=== PATIENT | female | born 1945 | race Caucasian/White ===

== ENCOUNTER 2019-11-29 21:20 | Emergency (ER) | payer MEDICARE, OTHER ==
[~2019-11-29] VITALS: Ht 162.6 cm; Wt 54.5 kg
[~2019-11-29 21:20] MED LIST: DOC-Q-LACE100 MG PO; FIBERCON PO; LORTAB 5/500 501 TAB PO; MOTRIN600 MG PO; MULTI VITAMINS1 TAB PO; NORCO 325 MG-51 TAB PO; OMEPRAZOLE PO
[2019-11-29 21:45] VITALS: TEMP 97.6
[2019-11-30 00:24] LABS: BASO # 0.1 (0.0-0.2); BASO % 1.1 % (0.0-2.0); EOS # 0.2 (0.0-0.7); EOS % 4.2 % (0-4.0); GRAN # 3.1 (1.4-6.5); GRAN % 57.7 % (42.2-75.2); HEMOGLOBIN 11.8 g/dl (12.5-16.0); LYMPH # 1.5 (1.2-3.4); LYMPH % 27.4 % (20.0-51.0); MEAN CELL VOLUME 91 fl (80.0-100.0); MEAN CORPUSCULAR HEMOGLOBIN 30 pg (27.0-31.0); MEAN CORPUSCULAR HGB CONC 33 g/dl (33.0-37.0); MEAN PLATELET VOLUME 11.2 fl (7.4-10.4); MONO # 0.5 (0.1-0.6); MONO % 9.4 % (1.7-9.3); PLATELET COUNT 176 K/mm3 (130-400); RED BLOOD COUNT 3.95 M/mm3 (4.10-5.30); REDCELL DISTRIBUTION WIDTH-CV 12.8 % (11.5-14.5)
[2019-11-30 00:25] LABS: HEMATOCRIT 36.1 % (37.0-47.0)
[2019-11-30 00:31] LABS: D-DIMER < 200.00 ng/mLDDu (200-230)
[2019-11-30] MEDS ORDERED: BACTRIM DS 8001 TAB PO ×2 (00:50→10:38)
[2019-11-30 01:07] VITALS: BP 138/63; PULSE 73
== END 2019-11-30 01:07 | disposition home or self-care (01) ==
LOC: COL.ER 21:20
PROVIDERS: Nurse Practitioner
DX: S80.862A Insect bite (nonvenomous), left lower leg, initial encounter (principal); Z87.891 Personal history of nicotine dependence; Z88.6 Allergy status to analgesic agent; Z88.8 Allergy status to other drugs, medicaments and biological substances

== ENCOUNTER 2020-05-05 13:11 | Inpatient (IN) | payer MEDICARE, OTHER ==
[~2020-05-05] VITALS: Ht 162.6 cm; Wt 56.8 kg
[~2020-05-05 13:11] MED LIST changes: +ANTIBIOTIC; +BACTRIM DS 8001 TAB PO; +CENTRUM SILVER CHEW; +FIBER GUMMIES2.5 GM PO; +LIDO35.4; +ULTRAM 50MG TAB50 MG PO
[2020-05-05 18:00] VITALS: BP 149/70; PULSE 99; TEMP 98.7
--- NOTE | 2020-05-05 20:22 | NUR ---
Recieved report from BE De Anda at [facility] at 3:00 PM today. 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 She wears bilateral hearing aids and is very [place] of B/B, Takes pills whole with water, She has dentures upper and lower, she has a hearing aid core worker, she has 2 pairs of shoes with her, she also brought clothes and PJ's x2. She is a Full Code, her last BM was yesterday. Last VS prior to leaving for IPR was the followin/66, T 36.7, R 20, 02 93% RA. She has a double lumen PICC to her right upper arm and receives continues antibiotic for her Bacterial Menengitis. Patient is currently resting in bed, call light in reach and bed alarm set. Reported off to night nurse.
--- NOTE | 2020-05-06 04:26 | NUR ---
PT SLEEPING SOUNDLY AFTER NORCO GIVEN FOPR PAIN. NO RESP DISTRESS.
[2020-05-06 05:32] VITALS: BP 122/51; PULSE 83; TEMP 98.4
--- NOTE | 2020-05-06 08:45 | NUR ---
PT DENIED PAIN THIS AM. ASSISTED WITH DENTURE CARE THIS AM AND TO RESTROOM.
[2020-05-06 16:30] VITALS: BP 147/71; PULSE 100; TEMP 98.3
--- NOTE | 2020-05-06 16:32 | NUR ---
Plug Assembler met with patient to complete intake as she is new to [facility]. Patient lives in [place] with her adult son, Jluis. 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 Patient sees Dr. Abdias Flanagan for primary care and [facility] with [facility] difficulties. Patient normally does not use any DME and is normally independent with ADLS. Patient is determined to discharge from [facility] without needing any DME. Patient does not have Advance Directives and is not interested in completing DPOA-HC at this time. SW explained that a DPOA-HC would be designating someone to make medical decisions for her if she is unable to. Patient states "talk to me about it in 10 years". Patient has five children: Cely Bazzi (ph#[phone]), Cadence Harrington, and Sommer. Patient reports Jluis and Cely are her adopted children and were biologically her grandchildren before she adopted them. SW will continue to follow for discharge needs.
--- NOTE | 2020-05-06 19:48 | NUR ---
PT RECEIEVED NORCO ONCE THIS SHIFT FOR BAKC AND NECK PAIN AND APAP ONCE FOR HEADACHE. PT USING TOILET FOR BM VERY FREQUENTLY THIS EVENING EVERY 15 MINUTES FOR LAST HOUR TO HOUR AND HALF. STOOLS ARE SEMI-FORMED AND VERY SMALL. PT REPORTS BEING BACKED UP FOR 2 WEEKS.
[2020-05-07 04:39] VITALS: BP 131/55; PULSE 87; TEMP 98.6
--- NOTE | 2020-05-07 08:00 | NUR ---
PT UP TO BR MULTIPLE TIMES FOR VERY SMALL BM'S AND URINATING FREQUENCY. NEW BAG OF NAFACILLIN AND NEW TUBING HUNG LAST EVENING. NORCO 7.5 GIVEN X 2 THIS SHIFT WITH THE LAST ONE JUST PRIOR TO SHIFT CHANGE. PICC FLUSHES WITH NO PROBLEM. SLEEPS OFF AND ON. BED ALARM ON AND CALL LIGHT IN REACH. AMBULATES IN BEAVER AROUND TO NURSES DESK AND THEN BACK TO ROOM AND REMAINS UP IN CHAIR.
[2020-05-07 15:12] VITALS: BP 152/60; PULSE 100; TEMP 98.4
--- NOTE | 2020-05-08 05:22 | NUR ---
PT IN BED. COREY FOR NECK/HEAD PAIN. NO N/V. PT HAD NO PROBLEMS WITH FREQUENT STOOLS ON PENETRATION TESTER.
[2020-05-08 05:47] VITALS: BP 131/57; PULSE 90; TEMP 97.8
--- NOTE | 2020-05-08 08:41 | NUR ---
Patient resting in recliner, call light in reach and chair alarm set. Assisted patient with meals for today. Will continue to monitor.
--- NOTE | 2020-05-08 11:56 | NUR ---
Patient continues to have frequent transfers to the toilet due to incontinent stools. Stools are soft and formed. Patient was seen by Dr. Doshi, see new orders for stool culture and imodium prn. This nurse assisted patient with calling in her changes to her menu for lunch and dinner this morning. Patient continues on continuous antibiotic and tolerating at this time. Will continue to monitor.
[2020-05-08 15:01] VITALS: BP 148/71; PULSE 96; TEMP 98.4
--- NOTE | 2020-05-08 16:51 | NUR ---
Patient's daughter stopped by to visit and helped her mother with her menu for tomorrow. Menu was faxed to the kitchen. Patient currently resting in bed, call light in reach and bed alarm set. Will continue to monitor.
--- NOTE | 2020-05-08 19:15 | NUR ---
RECEIVED CHANGE OF SHIFT REPORT FROM DAY SHIFT NURSE. BED ALARM ON.
--- NOTE | 2020-05-08 19:48 | NUR ---
PATIENT REQUESTED PAIN MED FOR COMPLAINT OF BACK AND NECK PAIN AND HAD ALSO COMPLAINED OF NOT GETTING ENOUGH SLEEP. PATIENT SLEEPING IN BED WHEN STAFF ENTERED ROOM TO ADMINISTER REQUESTED PAIN MED, PATIENT NOT WAKENED FOR PAIN MED AT THIS TIME.
--- NOTE | 2020-05-08 20:41 | NUR ---
CONTINUED L HAND PARTIALLY CONTRACTED WITH WEAK ADVERTISING INTERN COMPARED TO R HAND. DENIES CHEST PAIN/SOA/NAUSEA AT THIS TIME.
--- NOTE | 2020-05-09 03:31 | NUR ---
ATTEMPTED TO COLLECT STOOL SPECIMEN, WITH SPECIMEN CONTANIMATED WITH URINE, UNABLE TO COLLECT.
[2020-05-09 05:47] VITALS: BP 150/69; PULSE 63; TEMP 98.6
[2020-05-09 06:03] LABS: BASO # 0.1 (0.0-0.2); BASO % 1.6 % (0.0-2.0); EOS # 0.3 (0.0-0.7); EOS % 4.6 % (0-4.0); GRAN % 65.8 % (42.2-75.2); LYMPH # 1.2 (1.2-3.4); LYMPH % 19.2 % (20.0-51.0); MEAN CELL VOLUME 95 fl (80.0-100.0); MEAN CORPUSCULAR HGB CONC 30 g/dl (33.0-37.0); MEAN PLATELET VOLUME 9.1 fl (7.4-10.4); MONO # 0.5 (0.1-0.6); MONO % 8.5 % (1.7-9.3); PLATELET COUNT 478 K/mm3 (130-400); RED BLOOD COUNT 2.93 M/mm3 (4.10-5.30); REDCELL DISTRIBUTION WIDTH-CV 15.4 % (11.5-14.5)
[2020-05-09 06:11] LABS: HEMATOCRIT 27.8 % (37.0-47.0); HEMOGLOBIN 8.4 g/dl (12.5-16.0); MEAN CORPUSCULAR HEMOGLOBIN 29 pg (27.0-31.0)
[2020-05-09 06:20] LABS: ALBUMIN 3.1 gm/dL (3.5-5.0); BILIRUBIN,TOTAL 0.8 mg/dL (0.0-1.0); CALCIUM 8.4 mg/dL (8.4-10.2); CREATININE, serum 0.55 (0.52-1.25); TOTAL PROTEIN 6.4 gm/dL (6.4-8.2)
--- NOTE | 2020-05-09 07:04 | NUR ---
CHANGE OF SHIFT REPORT GIVEN TO DAY SHIFT NURSE, CARLY LR.
--- NOTE | 2020-05-09 07:04 | NUR ---
PT RESTING IN RECLINER AT BEDSIDE SHIFT REPORT. UP TO BATHROOM AND HAS BRUSHED TEETH THIS AM.
[2020-05-09 07:08] LABS: ERYTHROCYTE SEDIMENTATION RATE > 140 mm/hr (0-30)
--- NOTE | 2020-05-09 11:33 | NUR ---
SW met with the patient to introduce oneself and to follow up after the weekend. The patient states that she is doing okay and the weekend went okay. The patient then became tearful and appeared upset. She states that she was told she can fight her stay here. She reports that if she needs IV antibiotics or her PICC changed that she has no one at home that can do that. SW informed her of the option of doing this at an outpatient clinic, such at [facility], if she has transportation. The patient states that she does not know what is social work is talking about that she would not be able to do that. SW provided support. SW to follow up with clinical team about antibiotic recs.
--- NOTE | 2020-05-09 13:39 | NUR ---
Admission QIM scores were reviewed by the team. Code of 6 chosen for eating was determined by team discussion to be the most usual performance for this patient during the assessment period. Code of 3 chosen for toilet hygiene was determined by team discussion to be the most usual performance for this patient during the assessment period. Code of 3 chosen for toileting transfers was determined by team discussion to be the most usual performance for this patient during the assessment period. Code of 3 chosen for lower body dressing was determined by team discussion to be the most usual performance for this patient during the assessment period. Code of 1 chosen for putting on/taking off footwear was determined by team discussion to be the most usual performance for this patient during the assessment period. Code of 3 for sit to stand was determined by team discussion to be the most usual performance for this patient during the assessment period. Code of 3 for chair/bed to chair transfers was determined by team discussion to be the most usual performance for this patient during the assessment period.--Mia Avila,
[2020-05-09 15:27] VITALS: BP 133/57; PULSE 95; TEMP 98.4
--- NOTE | 2020-05-09 17:36 | NUR ---
PT RECEIEVED PRN APAP FOR HEADACHE THIS AM. VITALS CHECKED PRIOR AND WNL. PT HAS DENIED MUCH NECK OR BACK PAIN. IV STOPPED FOR 30-40 MINUTES FOR SHOWER AND RECONNECTED FOR CONTINUOUS INFUSION OF ABX. PT HAVING FEWER BM'S TODAY.
--- NOTE | 2020-05-09 19:12 | NUR ---
RECEIVED CHANGE OF SHIFT REPORT FROM DAY SHIFT NURSE.
--- NOTE | 2020-05-09 20:00 | NUR ---
DENIES CHEST PAIN/SOA/NAUSEA AT THIS TIME. REPORTS SHE IS MORE COMFORTABLE IN BED SINCE AIR MATTRESS OVERLAY PLACED ON BED. BED ALARM ON WHEN BED.
[2020-05-10 04:38] VITALS: BP 132/59; PULSE 78; TEMP 98
--- NOTE | 2020-05-10 06:58 | NUR ---
PT ASSISTED TO BATHROOM THIS AM AT BEDSIDE SHIFT REPORT. TEETH BRUSHED AND HEARING AIDS PLACED. PT AMBULATED TO RECLINER AND ALARM SET.
--- NOTE | 2020-05-10 07:04 | NUR ---
CHANGE OF SHIFT REPORT GIVEN TO DAY SHIFT NURSE, CARLY LR.
--- NOTE | 2020-05-10 10:02 | NUR ---
Initial visit; Patient thanked [employer] for looking in on her and offering God's blessings.
--- NOTE | 2020-05-10 11:45 | NUR ---
Patient admitted to [facility] with PICC. AIV not notified. PICC dressing dated 04/25/2020. Sterile PICC dressing change done with insertion site cleansed with chloraprep x 1, chlorhexidine impregnated disk applied, skin prep, stat lock, and tegaderm applied. no signs or symptoms of IV complications noted. no concerns voiced.
--- NOTE | 2020-05-10 17:37 | NUR ---
PT RECEIEVED PRN APAP DURING THIS SHIFT FOR BACK PAIN. UTILIZES KPAD TO LOWER BACK. UP TO THE BATHROOM FREUENLTY. SMALL FORMED STOOLS AND FREQUENT URINATION.
[2020-05-10 17:43] VITALS: BP 137/97; PULSE 106; TEMP 98.4
[2020-05-10 18:10] VITALS: BP 126/50; PULSE 65; TEMP 98.9
--- NOTE | 2020-05-10 19:30 | NUR ---
RECEIVED CHANGE OF SHIFT REPORT FROM DAY SHIFT NURSE. BED ALARM ON WHILE IN BED.
--- NOTE | 2020-05-10 19:30 | NUR ---
DENIES CHEST PAIN/SOA/NAUSEA AT THIS TIME. PICC LINE IN PLACE. BED ALARM ON WHEN IN BED. PATIENT REPORTS SHE DOESNOT WANT TO TAKE NARCOTICS FOR PAIN AND IS OK WITH TAKING TYLENOL WHEN NEEDED.
[2020-05-11 05:21] VITALS: BP 136/71; PULSE 75; TEMP 97.5
--- NOTE | 2020-05-11 07:17 | NUR ---
CHANGE OF SHIFT REPORT GIVEN TO DAY SHIFT NURSE, ROSELINE LR.
--- NOTE | 2020-05-11 14:02 | NUR ---
Patient working with therapy at this time. Patient tolerated breakfast and lunch today reporting no nausea at this time. She took some prn tylenol for pain management of back pain. Will continue to monitor.
--- NOTE | 2020-05-11 14:55 | NUR ---
Patient attended all therapies this shift. She is currently resting in recliner, call light in reach and alarm set. Patient is on continuous IV antibiotics and tolerating well at this time. Patient will be discharging on Saturday of next week with HH PT/OT. Will continue to monitor.
--- NOTE | 2020-05-11 14:58 | NUR ---
SANA contacted the patient's daughter, Cely, to review the IPR Team Conference note. The team has set a tentative d/c date for next Saturday, 05/17, with home health PT/OT. The patient is also going to need to continue her IV antibiotics until June 04. SANA informed of Cely of his and informed her of the different options to receive the IV antibiotics. Cely reports that she works at [facility] and would be able to bring the patient there to get the IV antibiotic and then bring her back home. SANA discussed getting a patient/family meeting set up. A patient/family meeting was set up on Saturday, 05/13, at 1300. SANA updated IPR Director. SANA then met with the patient to review the above information and presented the IPR Team Conference Note. The patient is agreeable to the plan. SANA provided her with Medicare.gov's list of home health agencies that serve [place]. The patient chose [facility]. SANA contacted and faxed a referral to Kaye at [facility]. Awaiting screen.
[2020-05-11 16:05] VITALS: BP 140/68; PULSE 104; TEMP 97.4
--- NOTE | 2020-05-11 18:56 | NUR ---
RECEIVED CHANGE OF SHIFT REPORT FROM DAY SHIFT NURSE.
--- NOTE | 2020-05-11 19:58 | NUR ---
CIHDI HAND ASSET RECOVERY SPECIALIST WEAK WITH LEFT WORSE THAN RIGHT D/T LEFT HAND PARTIAL CONTRACTED POSITION. BED ALARM ON WHEN IN BED. SEE eMAR FOR MED GIVEN FOR LOOSE STOOL.
[2020-05-12 05:46] VITALS: BP 128/57; PULSE 83; TEMP 97.8
--- NOTE | 2020-05-12 07:12 | NUR ---
CHANGE OF SHIFT REPORT GIVEN TO DAY SHIFT NURSE, ROSELINE LR.
--- NOTE | 2020-05-12 08:49 | NUR ---
Patient working with therapy at this time. Patient reported having some nausea this morning when eating breakfast, but that has subsided at this time. Patient takes pills whole with water a few at a time.
--- NOTE | 2020-05-12 08:51 | NUR ---
Patient currently working with therapy at this time. She had one soft formed stool this morning. She reported pain to her lower back and was given prn tylenol prior to her therapies. Patient is observation only when ambulating to the bathroom using her walker, gaitbelt and staff following behind with pulling along the IV pole. Patient in a pleasent mood this morning. Patient was given imodium this morning due to multiple stools. Will continue to monitor.
--- NOTE | 2020-05-12 13:43 | NUR ---
Kaye, at [facility], reports that they are maxed out on clients with Medicare advantage plans and will have to deline the patient at this time. SW to update the patient.
--- NOTE | 2020-05-12 14:33 | NUR ---
SANA met with the patient to update on [facility] and obtain second preference. The patient was interested in [facility]. SANA contacted and faxed a referral to Ritu at [facility]. Ritu reports that they do take Medicare [employer]. Awaiting screen.
--- NOTE | 2020-05-12 15:16 | NUR ---
Kaye, at [facility], contacted SANA back and reports that they actually can take the patient for services. SANA met with the patient to update. The patient would like to go ahead and use [facility]. SANA notified Ritu at [facility].
--- NOTE | 2020-05-12 15:21 | NUR ---
SANA contacted the supervisor bottle house cleaners at [facility] to set up the IV antibiotics. The supervisor bottle house cleaners reports that their IV therapy division officer weapons department is gone and will be back Saturday. She states that SANA can follow up then to set up the antibiotics.
[2020-05-12 18:46] VITALS: BP 150/65; PULSE 113; TEMP 97.7
--- NOTE | 2020-05-12 20:10 | NUR ---
Patient continues to have multiple soft stools, but has taken imodium of which has helped. Patient attended all therapies. Pain has been controlled with Tylenol and heating pad. Labs from Saturday were faxed to Dr. Carrillo's office per orders. Awaiting a return call from their office for any new orders. Reported off to night nurse requesting that the nurse tomorrow follow up with Dr. Carrillo's office. Patient currently resting in bed, call light in reach and bed alarm set.
--- NOTE | 2020-05-12 21:00 | NUR ---
PT RESTING IN BED. HAD JUST RETURNED FROM BR WITH WALKER AND PROCESS ENGINEER. PT DENIES PAIN AT THIS TIME. READY FOR MELATONIN. NAAFCILLIN INFUSING AT 20.8CC/HR TO RT UPPER ARM PICC LINE. PURPLE LUMEN. RED LUMEN FLUSHES WELL. CALL LIGHT IN REACH. BED ALARM SET.
[2020-05-12 21:57] VITALS: PULSE 87
[2020-05-13 04:24] VITALS: BP 130/56; PULSE 81; TEMP 98
--- NOTE | 2020-05-13 08:56 | NUR ---
PT UP IN RECLINER AT SHIFT REPORT. TO BATHROOM THIS AM, REQUESTING IMODIUM. DENIES PAIN AT THIS TIME.
--- NOTE | 2020-05-13 11:03 | NUR ---
Follow-up; Patient out of room, Boat Mechanic left Prayer card with God's blessings.
--- NOTE | 2020-05-13 13:24 | NUR ---
SW attended a patient/family meeting. The patient's daughter, Praveen, was present. Also present was ST, PT, and OT. ST started by explaining the purpose of the meeting. ST/PT/OT then discussed the patient's progress so far and how a tentative d/c date has been set for next Saturday with home health PT/OT. The patient and her daughter were agreeable to the plan. At this time, the patient's IV antibiotics run time is continuous throughout the day. The patient and her daughter's biggest concern is the IV antibiotic and how often she will need it. The clinical team is working on getting recommendations for the IV antibiotics. The patient reports that she will need a FWW for at home and would like to ahead and get it from [facility]. The team answered all questions. SW to continue to follow.
[2020-05-13 17:20] VITALS: BP 134/63; PULSE 103; TEMP 98.3
--- NOTE | 2020-05-13 19:52 | NUR ---
PT MADE MOD-I IN ROOM WITH JUST IV POLE. PT DOING WELL WITH THIS. C/O LOWER BACK AND SACRAL PAIN AT SEPERATE TIMES TODAY. GIVEN PRN APAP EACH TIME. PT FRUSTRATED THIS EVENING AND IN TEARS, UNABLE TO GET LEGS UP ON RECLINER. STATED SHE WAS JUST TIRED AND FRUSTRATED.
--- NOTE | 2020-05-13 20:00 | NUR ---
PT SLEEPING. NO DISTRESS. NAFCILLIN INFUSING TO RUE PICC PURPLE LUMEN AT 20.8CC/HR. MOD I IN ROOM.
[2020-05-14 05:47] VITALS: BP 133/56; PULSE 78; TEMP 98.4
[2020-05-14 16:48] VITALS: BP 120/84; PULSE 99; TEMP 98.1
--- NOTE | 2020-05-14 18:56 | NUR ---
PATIENT INDEPENDENT IN THE ROOM DURING SHIFT. PATIENT AMBULATED IN HALLWAYS WITH STAFF MULTIPLE TIMES THROUGHOUT THE DAY. PATIENT REPORTING A HEADACHE THIS EVENING AND WAS GIVEN PRN TYLENOL WITH EVENING MEDS. REPORT GIVEN TO BE JAVIER.
--- NOTE | 2020-05-14 21:01 | NUR ---
PT RESTING IN BED. DENIES PAIN AT THIS TIME. NAFACILLIN INFUSING TO RUE PICC AT 20.8CC/HR. MOD I IN ROOM. TOLERATING WELL. CALL LIGHT IN REACH.
[2020-05-15 05:32] VITALS: BP 128/52; PULSE 73; TEMP 98.1
[2020-05-15 15:45] VITALS: BP 144/67; PULSE 93; TEMP 98.5
--- NOTE | 2020-05-15 18:59 | NUR ---
PATIENT GIVEN PRM IMMODIUM ONCE DURING SHIFT FOR FREQUENT STOOLS. PATIENT GIVEN PRN TYLENOL FOR NECK PAIN. PATIENT AMBULATED IN HALLWAYS MULTIPLE TIMES WITH STAFF DURING THE DAY, OTHERWISE RENO IN THE ROOM WITH THE IV POLE. PATIENT RESTING IN CHAIR AT THIS TIME. REPORT GIVEN TO BE JAVIER.
--- NOTE | 2020-05-15 20:00 | NUR ---
PT MOD I IN ROOM. REMINDED OF SAFETY. PT REFUSES WALKER. ABLE TO MANAGE SELF CARES INDEPENDENTLY.
[2020-05-16 01:32] VITALS: BP 135/62; PULSE 91
[2020-05-16 05:27] VITALS: BP 133/55; PULSE 73; TEMP 98
[2020-05-16 06:27] LABS: BASO # 0.1 (0.0-0.2); BASO % 2.1 % (0.0-2.0); EOS # 0.3 (0.0-0.7); EOS % 5.9 % (0-4.0); GRAN # 2.5 (1.4-6.5); LYMPH # 1.3 (1.2-3.4); LYMPH % 27.6 % (20.0-51.0); MEAN CELL VOLUME 97 fl (80.0-100.0); MEAN CORPUSCULAR HGB CONC 30 g/dl (33.0-37.0); MEAN PLATELET VOLUME 9.2 fl (7.4-10.4); MONO # 0.5 (0.1-0.6); MONO % 11.2 % (1.7-9.3); PLATELET COUNT 261 K/mm3 (130-400); RED BLOOD COUNT 2.85 M/mm3 (4.10-5.30); REDCELL DISTRIBUTION WIDTH-CV 16.5 % (11.5-14.5)
[2020-05-16 06:28] LABS: HEMATOCRIT 27.5 % (37.0-47.0); HEMOGLOBIN 8.3 g/dl (12.5-16.0); MEAN CORPUSCULAR HEMOGLOBIN 29 pg (27.0-31.0)
[2020-05-16 06:43] LABS: ALBUMIN 3.1 gm/dL (3.5-5.0); BILIRUBIN,TOTAL 0.9 mg/dL (0.0-1.0); C-REACTIVE PROTEIN 5.4 mg/dL (0.0-0.9); CALCIUM 8.3 mg/dL (8.4-10.2); CREATININE, serum 0.56 (0.52-1.25); POTASSIUM 3.9 mmol/L (3.4-5.0); TOTAL PROTEIN 6.7 gm/dL (6.4-8.2)
[2020-05-16 07:42] LABS: ERYTHROCYTE SEDIMENTATION RATE 106 mm/hr (0-30)
--- NOTE | 2020-05-16 09:23 | NUR ---
PT UP AND IN RECLINER AT SHIFT REPORT. PT REPORTS PAIN IS MINIMAL THIS AM, DOIG WELL WITH MOD-I STATUS IN ROOM. CALL OUT TO ID IN [place] TO CHECK ON SWITCHING TO PO ABX PRIOR TO DISCHARGE.
--- NOTE | 2020-05-16 09:38 | NUR ---
SW contacted and faxed the patient's FWW order to [facility].
--- NOTE | 2020-05-16 13:03 | NUR ---
Barbara, at [facility], contacted SANA. Barbara requested the patient's records. She will need an order for the IV antibiotic, once recommedations are in. SANA faxed the patient's records to Barbara. Awaiting ID recs for IV antibiotics. Barbara ph#[phone], fax#[phone]
[2020-05-16] MEDS ORDERED: CUBICIN 500MG500 MG IV (15:34)
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
[2020-05-16 16:14] VITALS: BP 128/58; PULSE 101; TEMP 98.4
--- NOTE | 2020-05-16 16:31 | NUR ---
The hospitalist notified SANA that ID is recommending either IV Ancef 3 times a day or IV Dapto once a day. SANA notified Barbara at [facility]. Barbara reports that they would be able to and prefer the IV Dapto. Barbara states that since the patient has a Medicare advantage plan, that they would need to get auth first. Barbara states that the records SW send earlier were difficult to read and gave SW another fax number to fax them to. [phone]. SANA re-faxed the patient's records and the script for the IV Dapto to Barbara at that number. SANA met with the patient to update. The patient is ready to get home and states that she does not need a FWW now. SW to staff with PT about this. SANA presented and read the IM form outloud to the patient. The patient verbalized understanding and gave SW approval to sign the form on her behalf. SANA provided her with a copy. SANA then contacted and updated the patient's daughter, Cely, on the above information. SANA then received a phone call from Barbara at [facility]. Barbara reports that they have everything taken care of now and are able to accept the patient for the IV antibiotics. The patient's appointment time will be at 1200 on Saturday. Barbara does request the notes from our PICC Line nurse. SANA to staff with our PICC line nurse, Dona. SANA updated the patient's RN. SANA contacted the patient's daughter, Cely, and updated her. Cely was agreeable to the appointment time. Cely reports that she will knot picker cloth the patient around [phone] tomorrow. SANA informed the patient's RN of this.
--- NOTE | 2020-05-16 16:55 | NUR ---
PT TO RECEIEVE FIRST DOSE OF IV CUBICIN 05/17 PRIOR TO DISCHARGE. WILL STOP NAFACILLIN, FLUSH, AND THEN ADMINISTER CUBICIN. PHARMACY WILL HAVE IT READY BY NOON TOMORROW. PT WILL RECEIVE SECOND AND CONSECUTIVE DOSES AT [facility] STARTING 05/18 AT 1200.
[2020-05-16] MEDS ORDERED: IMODIUM 2MG CAPS2 MG PO (17:03)
[2020-05-16] MEDS ORDERED: TYLENOL 325MG325 MG PO (17:03)
[2020-05-16] MEDS ORDERED: ZINC OXIDE56.7 GM TOP (17:04)
[2020-05-16] MEDS ORDERED: MELATIN 3 MG-11 TAB PO (17:04)
[2020-05-17 04:10] VITALS: BP 130/61; PULSE 69; TEMP 98
--- NOTE | 2020-05-17 04:33 | NUR ---
Patient did well throughout the night. No complaints of pain. Patient ambulating independently in room. Antibiotics infusing to PICC in right upper arm.
[2020-05-17] MEDS ORDERED: ATIVAN 1MG T1 MG/TAB PO (08:06)
--- NOTE | 2020-05-17 08:16 | NUR ---
Patient resting in bed, call light in reach and independent in room when walking with IV pole. Patient's MRI was cancelled for this morning and will be rescheduled for one month from now. Patient's daughter will be picking up patient after her last dose of antibiotic was given at noon.
--- NOTE | 2020-05-17 10:07 | NUR ---
SW staffed with PT about the FWW. PT would recommend a FWW for the patient. SW met with the patient to discuss the FWW. The patient was agreeable with getting the FWW. SANA followed up with Claudine at [facility]. Claudine reports that their trailer driver is on their way now up to the hospital to deliver the FWW. The patient reports that her daughter has a doctor's appointment tomorrow and will not be able to bring her to her IV antibiotic appointment. SANA contacted the patient's daughter, Cely, to address this. Cely reports that she does have an appointment in [place] tomorrow and would not be able to bring the patient to her appointment tomorrow. Cely reports that the patient was asking a friend if they could bring her. If not, Cely was going to ask her boss to transport the patient tomorrow. SW updated the patient. The patient and her daughter had no other questions at this time. The patient is to discharge back home with her son today, 05/17, with home health services for shelter/PT/OT from [facility] and IV antibiotics at [facility]. SANA notified and faxed d/c orders to Kaye at [facility] and Barbara at [facility]. The patient's RN faxed our PICC Line RN's information to Barbara at [facility]. No additional needs at this time.
--- NOTE | 2020-05-17 14:28 | NUR ---
This nurse called and spoke with Dr. Flanagan's nurse Francine and she will be having Sarina lining caser follow up with patient tomorrow. Patient will be getting her labs drawn at [facility] outpatient.
--- NOTE | 2020-05-17 17:59 | NUR ---
Patient Health Summary, Discharge Summary, and Home meds printed and reviewed with patient and daughter. Stressed importance of follow up appointments. Provided prescriptions for Daily antibiotic, Cubicin Inj. and weekly labs (CBC w/diff, CMP, CK, ESR, CRP). Belongings gathered by [employer] incuding phone, spine specialist, other misc. items and air mattress. Patient transported via wheelchair by [employer] and seatbelted for ride home with daughter. Patient and daughter denied questions.
--- NOTE | 2020-05-26 09:25 | NUR ---
Kaye at [facility] contacts this web content & social media manager and advises that they were only able to secure one nursing visit with patient due to multiple attempts of patient not being home and also not answering her phone. Kaye stated they tried 6 times to arrange an Occupational therapy eval as well as multiple attempts for physical therapy. Kaye with [facility] states they have stopped services for patient. Kaye states that they notified Dr Flanagan of the above information.
== END 2020-05-17 16:00 | disposition home health service (06) | DRG 947 ==
PROVIDERS: ADMIT Internal Medicine
DX: R53.81 Other malaise (principal); G00.9 Bacterial meningitis, unspecified; E43 Unspecified severe protein-calorie malnutrition; M46.22 Osteomyelitis of vertebra, cervical region; J02.9 Acute pharyngitis, unspecified; M48.07 Spinal stenosis, lumbosacral region; R19.7 Diarrhea, unspecified; Z79.891 Long term (current) use of opiate analgesic; Z85.038 Personal history of other malignant neoplasm of large intestine; Z88.5 Allergy status to narcotic agent; Z88.8 Allergy status to other drugs, medicaments and biological substances
CPT/HCPCS: 99222-AI; 99231-AI; 99232-AI; 99233-AI; 99239; J0878; J1650; J7040

== ENCOUNTER 2020-09-06 14:52 | Emergency (ER) | payer MEDICARE, OTHER ==
[~2020-09-06] VITALS: Ht 162.6 cm; Wt 54.1 kg
[~2020-09-06 14:52] MED LIST changes: +ATIVAN 1MG T1 MG/TAB PO; +CUBICIN 500MG500 MG IV; +IMODIUM 2MG CAPS2 MG PO; +MELATIN 3 MG-11 TAB PO; +TYLENOL 325MG325 MG PO; +ZINC OXIDE56.7 GM TOP
[2020-09-06 15:30] VITALS: TEMP 97.9
[2020-09-06 17:50] VITALS: BP 161/80; PULSE 81
== END 2020-09-06 17:50 | disposition short-term general hospital (02) ==
LOC: COL.ER 14:52
DX: S12.110A Anterior displaced Type II dens fracture, initial encounter for closed fracture (principal); Z88.6 Allergy status to analgesic agent; X58.XXXA Exposure to other specified factors, initial encounter
CPT/HCPCS: L0174

== ENCOUNTER 2021-03-18 10:16 | Emergency (ER) | payer MEDICARE ==
[~2021-03-18] VITALS: Ht 162.6 cm; Wt 56.8 kg
[2021-03-18 10:51] VITALS: TEMP 97.8
[2021-03-18] MEDS ORDERED: NORCO 325 MG-51 TAB PO (13:47)
[2021-03-18 14:08] VITALS: BP 116/82; PULSE 93
== END 2021-03-18 14:08 | disposition home or self-care (01) ==
LOC: COL.ER 10:16
DX: S82.142A Displaced bicondylar fracture of left tibia, initial encounter for closed fracture (principal); W22.8XXA Striking against or struck by other objects, initial encounter
CPT/HCPCS: L1846

== ENCOUNTER → 2021-07-18 | Outpatient (CLI) | payer MEDICARE, OTHER | LOC: COL.RAD 07:05 | DX: M53.2X2 Spinal instabilities, cervical region (principal); M47.812 Spondylosis without myelopathy or radiculopathy, cervical region; M50.30 Other cervical disc degeneration, unspecified cervical region; M48.02 Spinal stenosis, cervical region; M43.12 Spondylolisthesis, cervical region; Z98.0 Intestinal bypass and anastomosis status | CPT/HCPCS: A9575 ==

== ENCOUNTER → 2023-02-28 | Outpatient (CLI) | payer MEDICARE, OTHER ==
[~2023-02-28] MED LIST changes: +PHARMASSURE ZIN50 MG; +VITAMIN B12 781 TAB; +VITAMIN D 400400 IU PO; +VITAMINC500CH PO
[2023-02-28 10:55] LABS: BASO # 0.1 K/mm3 (0.0-0.2); BASO % 0.8 % (0.0-2.0); EOS # 0.1 K/mm3 (0.0-0.7); EOS % 2.2 % (0.0-4.0); GRAN % 64.7 % (42.2-75.2); HEMATOCRIT 37.7 % (37.0-47.0); HEMOGLOBIN 11.9 g/dl (12.5-16.0); LYMPH # 1.5 K/mm3 (1.2-3.4); LYMPH % 23.2 % (20.0-51.0); MEAN CELL VOLUME 93 fl (80.0-100.0); MEAN CORPUSCULAR HEMOGLOBIN 29 pg (27-31); MEAN CORPUSCULAR HGB CONC 32 g/dl (33.0-37.0); MEAN PLATELET VOLUME 11.3 fl (7.4-10.4); MONO # 0.6 K/mm3 (0.1-0.6); MONO % 8.8 % (1.7-9.3); PLATELET COUNT 217 K/mm3 (130-400); RED BLOOD COUNT 4.07 M/mm3 (4.10-5.30); REDCELL DISTRIBUTION WIDTH-CV 14.2 % (11.5-14.5)
[2023-02-28 11:16] LABS: CALCIUM 9.7 mg/dL (8.4-10.2); CREATININE, serum 0.72 mg/dL (0.57-1.11); POTASSIUM 4.3 mmol/L (3.5-4.5); TOTAL PROTEIN 7.3 gm/dL (6.2-8.1)
[2023-02-28 11:31] LABS: BILIRUBIN,TOTAL 0.4 mg/dL (0.2-1.2)
== END ==
LOC: COL.LAB 10:16
PROVIDERS: Student in an Organized Health Care Education/Training Program
DX: R19.7 Diarrhea, unspecified (principal)